=== PATIENT | female | born 1955 | race Caucasian/White ===

== ENCOUNTER → 2017-10-03 | Outpatient (CLI) | payer OTHER | LOC: BMCIMAGING 11:13 | PROVIDERS: ATTEND Emergency Medicine | DX: S92.024A Nondisplaced fracture of anterior process of right calcaneus, initial encounter for closed fracture (principal) ==

== ENCOUNTER → 2017-10-26 | Outpatient (CLI) | payer OTHER | LOC: BMCIMAGING 14:13 | PROVIDERS: ATTEND Podiatrist Foot & Ankle Surgery | DX: S92.024D Nondisplaced fracture of anterior process of right calcaneus, subsequent encounter for fracture with routine healing (principal) ==

== ENCOUNTER → 2018-04-03 | Outpatient (CLI) | payer OTHER | LOC: FIMAGING 07:52 | PROVIDERS: ATTEND Family Medicine | DX: Z12.31 Encounter for screening mammogram for malignant neoplasm of breast (principal) ==